=== PATIENT | male | born 1985 | race Caucasian/White ===

== ENCOUNTER 2019-11-14 13:21 | Emergency (ER) | payer OTHER, SELFPAY ==
[2019-11-14 13:26] VITALS: BP 127/60; PULSE 60; RESP 16; TEMP 36.5; O2SAT 100; BMI 48.3
--- NOTE | 2019-11-14 13:46 | ED.PSYCH ---
HPI - Psych General Chief Complaint: Psychiatric Symptoms <RANDY Sewell - Last Filed: 11/14/19 17:40> Stated Complaint: crisis <RANDY Sewell Last Filed: 11/14/19 17:40> Time Seen by Provider: 11/14/19 13:42 <RANDY Sewell Last Filed: 11/14/19 17:40> Source: patient <RANDY Sewell Last Filed: 11/14/19 17:40> Mode of arrival: ambulatory <RANDY Sewell Last Filed: 11/14/19 17:40> Limitations: no limitations <RANDY Sewell Last Filed: 11/14/19 17:40> History of Present Illness HPI Narrative: 34 y/o male with history of substance abuse (opiates, benzos, cocaine), depression, SI who was just discharged from here on 11/03 - discharged on Suboxone is presenting back with recurrent and persistent SI. He states he is not taking the Suboxone or any other medications. Last heroin use was a couple days ago and last ETOH was last week. He denies current symptoms of withdrawal. He is a vague historian. <RANDY Sewell - Last Filed: 11/14/19 17:40> MD complaint: suicidal ideation and feels depressed <RANDY Sewell - Last Filed: 11/14/19 17:40> Onset (ago): day(s) (3) <RANYD Sewell Last Filed: 11/14/19 17:40> Duration: constant <RANDY Sewell Last Filed: 11/14/19 17:40> History of same: Yes <RANYD Sewell Last Filed: 11/14/19 17:40> Relieving factors: none <RANDY Sewell Last Filed: 11/14/19 17:40> Exacerbating factors: alcohol and drug use <RANDY Sewell Last Filed: 11/14/19 17:40> Context: significant life stressor <RANDY Sewell Last Filed: 11/14/19 17:40> Associated psychiatric symptoms: depression and suicidal ideation <RANDY Sewell Last Filed: 11/14/19 17:40> Associated symptoms: denies other symptoms <RANDY Sewell - Last Filed: 11/14/19 17:40> Treatments prior to arrival: none <RANDY Sewell - Last Filed: 11/14/19 17:40> If self harm: admits thoughts of self harm <RANDY Sewell Last Filed: 11/14/19 17:40> Related Data Home Medications: Home Medications Medication Instructions Recorded Confirmed No Known Home Meds 11/14/19 11/14/19 <RANDY Sewell - Last Filed: 11/14/19 17:40> Allergies/Adverse Reactions: Allergies Allergy/AdvReac Type Severity Reaction Status Date / Time No Known Allergies Allergy Unverified 10/23/19 15:36 <RANDY Sewell - Last Filed: 11/14/19 17:40> Review of Systems Review of Systems: Constitutional: No Fever, No Chills ENT/Mouth: No sore throat, No Rhinorrhea, No Swallowing Difficulty Eyes: No Eye Pain, No Swelling, No Redness Cardiovascular: No Chest Pain, No SOB, No Orthopnea Respiratory: No Cough, No Sputum, No Wheezing Gastrointestinal: No Nausea, No Vomiting, No Diarrhea, No abdominal Pain, No Hematochezia, No Melena Genitourinary: No Dysuria, No Urinary Frequency, No Hematuria Musculoskeletal: No joint pain, No Myalgias Skin: No Skin Lesions, No rash Neuro: No Weakness, No Numbness, No Dizziness, No Headache Psych: + Anxiety/Panic, +Depression , +SI, No AH/VH Heme/Lymph: No Bruising, No Lymphadenopathy Endocrine: No Polyuria, No Polydipsia All other 10 point ROS are negative. <RANDY Sewell - Last Filed: 11/14/19 17:40> PMF Past Medical History Attestation statement: The following information was validated with the patient. <RANDY Sewell Last Filed: 11/14/19 17:40> Medical History: Medical History Anxiety Depression <RANDY Sewell Last Filed: 11/14/19 17:40> Social History Social History: Social History Alcohol intake: current Smoking Status: Current every day smoker Smoked in Last 30 Days: Yes Use of substances other than those prescribed or required for medical reasons: No Advance Directives: No Advance Directives Information Provided: No <RANDY Sewell - Last Filed: 11/14/19 17:40> Physical Exam Vital Signs and I&O and Narrative: Vital Signs and I&O: Vital Signs Temp 97.8 F 11/15/19 02:04 Pulse 45 L 11/15/19 02:04 Resp 16 11/15/19 04:00 BP 102/47 L 11/15/19 02:04 Pulse Ox 97 11/15/19 02:04 Intake & Output 11/14/19 11/14/19 11/15/19 06:59 18:59 06:59 Weight 140 kg Body Mass Index 48.3 Appearance: Alert. Oriented X3. No acute distress. Eyes: Pupils equal, round and reactive to light. ENT: Pharynx normal. Neck: Normal inspection. Neck supple. CVS: Normal heart rate and rhythm. Pulses normal. Respiratory: No respiratory distress. Breath sounds normal. Abdomen: Soft and nontender. +BS x4 Skin: Skin warm and dry. Normal skin color. Normal skin turgor. No rashes. Extremities: No lower extremity edema. Neuro: Oriented X 3. No motor deficit. No sensory deficit. Psych: flat affect, blunted, +SI. <RANDY Sewell - Last Filed: 11/14/19 17:40> Vital Signs and I&O: Vital Signs Temp 97.8 F 11/15/19 02:04 Pulse 45 L 11/15/19 02:04 Resp 16 11/15/19 04:00 BP 102/47 L 11/15/19 02:04 Pulse Ox 97 11/15/19 02:04 Intake & Output 11/14/19 11/14/19 11/15/19 06:59 18:59 06:59 Weight 140 kg Body Mass Index 48.3 <Dashawn Leiva DO - Last Filed: 11/15/19 06:02> Course Course Course Narrative: 34 y/o presenting with SI - several admissions for the same. Cannot state what caused his SI at this time, denies current plan. Will get basic labs, Utox and get [facility] consult. <RANDY Sewell - Last Filed: 11/14/19 17:40> patient was cleared by in. No suicidal or homicidal ideations. Patient wants to go to detox however will discharge and the right will be arranged for him to go to [facility] <Dashawn Leiva DO - Last Filed: 11/15/19 06:02> Reevaluation(s) Reevaluation #1: Patient's repeat vitals noted - HR 49 and BP 89/50. Patient re-evaluated at the bedside. He is currently sleeping. When he was awoken he states his HR and BP are always low. He feels fine. He is drinking water and offers no complaints. Repeat vitals and EKG pending. <RANDY Sewell - Last Filed: 11/14/19 17:40> Time: 17:31 <RANDY Sewell - Last Filed: 11/14/19 17:40> Reevaluation #2: Repeat BP 99/64. <RANDY Sewell - Last Filed: 11/14/19 17:40> Time: 17:40 <RANDY Sewell - Last Filed: 11/14/19 17:40> MDM - Psych Restraints Face to Face Assessment: Face to Face Assessment: Current Situation: After assessment of the patient, a review of the pertinent medical record and a discussion with nursing staff, I feel the patient requires a restrain intervention. Reaction To: [] Medical Condition: [] Behavioral State: [] Continued Need: [] <RANDY Sewell - Last Filed: 11/14/19 17:40> Lab Data Result diagrams: : 11/14/19 16:08 11/14/19 16:08 <RANDY Sewell - Last Filed: 11/14/19 17:40> Labs: Lab Results 11/14/19 11/14/19 11/14/19 Range/Units 16:08 16:08 16:08 WBC 5.6 (4.8-10.8) X10*3/uL RBC 4.91 (4.60-5.80) X10*6/uL Hgb 14.9 (14.0-18.0) g/dl Hct 43.6 (42-52) % MCV 88.8 (80-98) fL MCH 30.3 (27.0-33.0) pg MCHC 34.2 (31.0-36.0) g/dl RDW 12.9 (11.0-16.0) % Plt Count 220 (160-400) X10*3/uL MPV 10.1 (9.4-12.4) fL Immature Gran % (Auto) 0.4 (0.0-0.4) % Neut % (Auto) 55.0 (45-73) % Lymph % (Auto) 27.9 (20-40) % [place]rill % (Auto) 12.9 H (2-11) % Eos % (Auto) 3.1 (0-4) % Baso % (Auto) 0.7 (0-2) % Lymph # (Auto) 1.6 (1.2-4.9) X10*3/uL [place] # (Auto) 0.7 (0.1-1.2) X10*3/uL Eos # (Auto) 0.2 (0.0-0.4) X10*3/uL Baso # (Auto) 0.0 (0.0-0.2) X10*3/uL Abs Immat Gran (auto) 0.02 (0.00-0.03) X10*3/uL Absolute Neuts (auto) 3.1 (2.0-8.3) X10*3/uL Absolute Nucleated RBC 0.000 (0.0-0.012) X10*3/uL Nucleated RBC % (auto) 0.0 (0.0-0.2) /100WBC Sodium 137 (135-145) mmol/L Potassium 3.9 (3.3-5.1) mmol/l Chloride 100 (96-108) mmol/L Carbon Dioxide 29 (22-29) mmol/L Anion Gap 12 (12-20) BUN 17 H (9-16) mg/dL Creatinine 0.81 (0.5-1.4) mg/dL Estim Creat Clear Calc 170.5 Estimated GFR > 60 Random Glucose 93 (60-115) mg/dL Calcium 9.1 (8.4-10.2) mg/dL Total Bilirubin 0.6 (0.0-1.0) mg/dL AST 14 (5-37) U/L ALT 11 (0-40) U/L Alkaline Phosphatase 53 (39-117) U/L Total Protein 7.2 (6.5-8.0) g/dL Albumin 4.1 (3.5-5.0) g/dL Ethyl Alcohol < 10 mg/dL <RANDY Sewell - Last Filed: 11/14/19 17:40> Lab Results 11/14/19 11/14/19 11/14/19 Range/Units 16:08 16:08 16:08 WBC 5.6 (4.8-10.8) X10*3/uL RBC 4.91 (4.60-5.80) X10*6/uL Hgb 14.9 (14.0-18.0) g/dl Hct 43.6 (42-52) % MCV 88.8 (80-98) fL MCH 30.3 (27.0-33.0) pg MCHC 34.2 (31.0-36.0) g/dl RDW 12.9 (11.0-16.0) % Plt Count 220 (160-400) X10*3/uL MPV 10.1 (9.4-12.4) fL Immature Gran % (Auto) 0.4 (0.0-0.4) % Neut % (Auto) 55.0 (45-73) % Lymph % (Auto) 27.9 (20-40) % [place]rill % (Auto) 12.9 H (2-11) % Eos % (Auto) 3.1 (0-4) % Baso % (Auto) 0.7 (0-2) % Lymph # (Auto) 1.6 (1.2-4.9) X10*3/uL [place]rill # (Auto) 0.7 (0.1-1.2) X10*3/uL Eos # (Auto) 0.2 (0.0-0.4) X10*3/uL Baso # (Auto) 0.0 (0.0-0.2) X10*3/uL Abs Immat Gran (auto) 0.02 (0.00-0.03) X10*3/uL Absolute Neuts (auto) 3.1 (2.0-8.3) X10*3/uL Absolute Nucleated RBC 0.000 (0.0-0.012) X10*3/uL Nucleated RBC % (auto) 0.0 (0.0-0.2) /100WBC Sodium 137 (135-145) mmol/L Potassium 3.9 (3.3-5.1) mmol/l Chloride 100 (96-108) mmol/L Carbon Dioxide 29 (22-29) mmol/L Anion Gap 12 (12-20) BUN 17 H (9-16) mg/dL Creatinine 0.81 (0.5-1.4) mg/dL Estim Creat Clear Calc 170.5 Estimated GFR > 60 Random Glucose 93 (60-115) mg/dL Calcium 9.1 (8.4-10.2) mg/dL Total Bilirubin 0.6 (0.0-1.0) mg/dL AST 14 (5-37) U/L ALT 11 (0-40) U/L Alkaline Phosphatase 53 (39-117) U/L Total Protein 7.2 (6.5-8.0) g/dL Albumin 4.1 (3.5-5.0) g/dL Ethyl Alcohol < 10 mg/dL <Dashawn Leiva DO - Last Filed: 11/15/19 06:02> Discharge Plan Discharge Clinical Impression: Substance abuse Depression Qualifiers: Depression Type: major depressive disorder Major depression recurrence: recurrent Active/Remission status: currently active Major depression episode severity: severe Psychotic features: without psychotic features Qualified Code(s): F33.2 - Major depressive disorder, recurrent severe without psychotic features <RANDY Sewell - Last Filed: 11/14/19 17:40> Patient Disposition: Home, Self-Care <RANDY Sewell - Last Filed: 11/14/19 17:40> Instructions: Depression (ED) <RANDY Sewell - Last Filed: 11/14/19 17:40> Additional Instructions: Thank you for visiting the emergency department today. If your symptoms worsen or do not resolve completely please return to the emergency department immediately or call 911. if he have any questions please call your primary care physician <RANDY Sewell - Last Filed: 11/14/19 17:40> Prescriptions: No Action No Known Home Meds RF: 0 <RANDY Sewell - Last Filed: 11/14/19 17:40> Referrals: Behavioral Health Specialist [Provider Group] - 2 days <RANDY Sewell - Last Filed: 11/14/19 17:40>
[2019-11-14 13:59] VITALS: BP 91/50; PULSE 60; RESP 16; TEMP 35.6; O2SAT 98
--- NOTE | 2019-11-14 15:43 | PC.NURSE ---
this rn just received pt from main ed
[2019-11-14 16:18] LABS: MANUAL DIFF FLAG NO
[2019-11-14 16:26] LABS: Basophils Percent Auto 0.7 % (0-2); Eosinophils Absolute Auto 0.2 X10*3/uL (0.0-0.4); Eosinophils Percent Auto 3.1 % (0-4); Hematocrit 43.6 % (42-52); Hemoglobin 14.9 g/dl (14.0-18.0); Imm Gran Abs Auto 0.02 X10*3/uL (0.00-0.03); Imm Gran Pct Auto 0.4 % (0.0-0.4); Lymphocytes Absolute Auto 1.6 X10*3/uL (1.2-4.9); Lymphocytes Percent Auto 27.9 % (20-40); Mean Corpuscular HGB Conc 34.2 g/dl (31.0-36.0); Mean Corpuscular Hemoglobin 30.3 pg (27.0-33.0); Mean Corpuscular Volume 88.8 fL (80-98); Mean Platelet Volume 10.1 fL (9.4-12.4); Monocytes Absolute Auto 0.7 X10*3/uL (0.1-1.2); Monocytes Percent Auto 12.9 % (2-11); Neutrophils Absolute Auto 3.1 X10*3/uL (2.0-8.3); Platelet Count 220 X10*3/uL (160-400); Red Blood Count 4.91 X10*6/uL (4.60-5.80); Red Cell Distribution Width 12.9 % (11.0-16.0); White Blood Count 5.6 X10*3/uL (4.8-10.8)
[2019-11-14 16:46] LABS: Ethanol < 10 mg/dL
[2019-11-14 16:50] LABS: Alanine Aminotransferase 11 U/L (0-40); Albumin Level 4.1 g/dL (3.5-5.0); Alkaline Phosphatase 53 U/L (39-117); Anion Gap 12 (12-20); Aspartate Amino Transferase 14 U/L (5-37); Bilirubin Total 0.6 mg/dL (0.0-1.0); Blood Urea Nitrogen 17 mg/dL (9-16); Calcium 9.1 mg/dL (8.4-10.2); Carbon Dioxide 29 mmol/L (22-29); Chloride 100 mmol/L (96-108); Creatinine Clr Calc Pharmacy 170.5; Estimated Glomerular Filt Rate > 60; Glucose Random 93 mg/dL (60-115); Potassium 3.9 mmol/l (3.3-5.1); Sodium 137 mmol/L (135-145); Total Protein 7.2 g/dL (6.5-8.0)
[2019-11-14 17:19] VITALS: BP 89/50; PULSE 49; RESP 14; TEMP 36.1; O2SAT 96
--- NOTE | 2019-11-14 17:22 | ECG_ITS ---
Test Reason : LOW HR Blood Pressure : / mmHG Vent. Rate : 051 BPM Atrial Rate : 051 BPM P-R Int : 128 ms QRS Dur : 088 ms QT Int : 434 ms P-R-T Axes : 059 067 026 degrees QTc Int : 400 ms Sinus bradycardia Low voltage QRS Otherwise normal ECG When compared with ECG of 30-OCT-2019 07:47, No significant change was found Referred By: Mikala Castellon Electronically Signed By:PAZ NICHOLS MD
[2019-11-14 17:32] VITALS: BP 99/64
--- NOTE | 2019-11-14 20:34 | PC.NURSE ---
Patient is in milieu sleeping comfortably. No update from [facility] for ETA. Will continue to monitor.
--- NOTE | 2019-11-14 21:11 | PC.NURSE ---
[facility] called/spoke with Danya/confirmed receipt of referral, no eta at this time.
--- NOTE | 2019-11-14 23:15 | MHC.MBSS ---
Patient in bed appears sleeping. No distress observed/reported. Respiration +/=/non-labored bilaterally. Will continue to monitor.
[2019-11-15 02:04] VITALS: BP 102/47; PULSE 45; RESP 16; TEMP 36.6; O2SAT 97
--- NOTE | 2019-11-15 02:11 | PC.NURSE ---
JADENN completed assessment, patient disposition is go to detox at [facility] at 7,30 am. N will arrange the ride.
--- NOTE | 2019-11-15 03:09 | PC.NURSE ---
Patient in bed appears sleeping, no distress observed/reported, respiration +/=/non-labored bilaterally, will continue to monitor
[2019-11-15 04:00] VITALS: RESP 16
--- NOTE | 2019-11-15 04:24 | PC.NURSE ---
Patient in bed appears sleeping, no distress observed/reported, respiration +/=/non-labored bilaterally. Will continue to monitor.
--- NOTE | 2019-11-15 06:03 | PC.NURSE ---
Patient in bed appears sleeping, no distress observed/reported, respiration +/=/non-labored bilaterally. Will continue to monitor.
--- NOTE | 2019-11-15 07:15 | PC.NURSE ---
PT DECLINING [facility] Pt signed discharged paperwork. Pt reports he was just there waiting for a bed, and was told he could not get a bed because he was would be an EATS pt. Pt given a list of area detox facilities to contact. Pt cooperative. Denies Si or HI at this time.
--- NOTE | 2019-11-15 07:19 | PC.NURSE ---
pt awake, alert, resp unlabored.
== END 2019-11-15 07:19 | disposition home or self-care (01) ==
PROVIDERS: Physician Assistant; Emergency Provider Emergency Medicine
DX: F33.2 Major depressive disorder, recurrent severe without psychotic features (principal); R45.851 Suicidal ideations; F11.10 Opioid abuse, uncomplicated; F14.10 Cocaine abuse, uncomplicated; Z79.899 Other long term (current) drug therapy
CPT/HCPCS: 36415; 80053; 80320; 85025; 93005; 99285

== ENCOUNTER 2019-11-26 09:06 | Emergency (ER) | payer OTHER, SELFPAY ==
[2019-11-26 09:15] VITALS: BP 126/51; PULSE 68; RESP 18; TEMP 36.8; O2SAT 96
[2019-11-26 09:21] VITALS: BP 126/51; PULSE 68; RESP 18; TEMP 37.1; O2SAT 96; BMI 23.5
--- NOTE | 2019-11-26 09:22 | ED_ITS ---
HPI - Psych General Chief Complaint: Psychiatric Symptoms Stated Complaint: crisis Time Seen by Provider: 11/26/19 09:14 Source: patient Mode of arrival: ambulatory Limitations: no limitations History of Present Illness HPI Narrative: 34 yo with history of substance abuse (IV heroin/cocaine), depression presenting with SI with intent to overdose. He reports he tried to kill himself last night by injecting a large amount of cocaine. He states he was starting to have visual hallucinations. He admits to also using IV heroin but has not used that in a few days but has been using IV cocaine daily. Denies ETOH or other drugs. He states he is not on any psych meds at this time. He was recently admitted here to for similar presentation. Denies having a psychiatrist or therapist in the community. MD complaint: suicidal ideation, feels depressed, substance abuse and hallucina tions Onset (ago): day(s) Duration: constant History of same: Yes Relieving factors: none Exacerbating factors: drug use Context: recent drug abuse Associated psychiatric symptoms: depression and suicidal ideation Associated symptoms: insomnia Treatments prior to arrival: none If self harm: admits thoughts of self harm, has plan, has acted on plan and intentional overdose Details of plan: plans to overdose which he attempted last night by injecting large amounts of cocaine Related Data Home Medications Medication Instructions Recorded Confirmed No Known Home Meds 11/14/19 11/26/19 Allergies Allergy/AdvReac Type Severity Reaction Status Date / Time No Known Allergies Allergy Unverified 10/23/19 15:36 Review of Systems Review of Systems: Constitutional: No Fever, No Chills ENT/Mouth: No sore throat, No Rhinorrhea, No Swallowing Difficulty Eyes: No Eye Pain, No Swelling, No Redness Cardiovascular: No Chest Pain, No SOB, No Orthopnea, No Edema Respiratory: No Cough, No Sputum, No Wheezing, No dyspnea Gastrointestinal: No Nausea, No Vomiting, No Diarrhea, + abdominal Pain, No Hematochezia, No Melena Genitourinary: No Dysuria, No Urinary Frequency, No Hematuria Musculoskeletal: No joint pain, No Myalgias Skin: + Skin Lesions at injection sites, No rash Neuro: No Weakness, No Numbness, No Dizziness, + Headache Psych: + Anxiety/Panic, + Depression, +SI, +VH, no AH Heme/Lymph: No Bruising, No Lymphadenopathy Endocrine: No Polyuria, No Polydipsia [facility] Past Medical History Attestation statement: The following information was validated with the patient. Medical History Anxiety Depression Social History Social History Alcohol intake: current Alcohol intake frequency: holidays/special occasions only Alcohol type: beer Smoking Status: Current every day smoker Smoked in Last 30 Days: Yes Use of substances other than those prescribed or required for medical reasons: Yes Substance Use Type: Crack/Cocaine Substance Use Frequency: Daily Last Used Substance: Hours (ago) Any prior treatment program specific to substance use: No Advance Directives: No Advance Directives Information Provided: No Physical Exam Vital Signs: Vital Signs: Vital Signs Temp Pulse Resp BP Pulse Ox 11/26/19 10:00 18 11/26/19 09:21 98.8 F 68 18 126/51 L 96 11/26/19 09:15 98.3 F 68 18 126/51 L 96 Body Mass Index 23.5 Appearance: Alert. Oriented X3. No acute distress. Eyes: Pupils equal, round and reactive to light. ENT: Pharynx normal. Neck: Normal inspection. Neck supple. CVS: Normal heart rate and rhythm. Pulses normal. Respiratory: No respiratory distress. Breath sounds normal. Abdomen: Soft with mild RUQ tenderness, no rebound or guarding. Negative Cooper's sign. +BS x4 Skin: Skin warm and dry. Normal skin color. Normal skin turgor. No rashes. Extremities: No lower extremity edema. bilateral upper extremities with track lundberg from drug infection, no cellulites, abscess or streaking Psych: flat affect, normal speech, poor insight, admits to SI, no AH/VH, simple and vague responses Neuro: Oriented X 3. No motor deficit. No sensory deficit. Course Course Course Narrative: Patient seen by MELBA - fifi is a section 12 bed search at this time. Consultations Consultation #1: MELBA/alva MDM - Psych Restraints Face to Face Assessment: Face to Face Assessment: Current Situation: After assessment of the patient, a review of the pertinent medical record and a discussion with nursing staff, I feel the patient requires a restrain intervention. Reaction To: [] Medical Condition: [] Behavioral State: [] Continued Need: [] Lab Data Result diagrams: 11/26/19 09:47 11/26/19 09:47 Labs: Lab Results 11/26/19 11/26/19 11/26/19 Range/Units 09:47 09:47 09:47 WBC 8.8 (4.8-10.8) X10*3/uL RBC 4.48 L (4.60-5.80) X10*6/uL Hgb 13.3 L (14.0-18.0) g/dl Hct 39.6 L (42-52) % MCV 88.4 (80-98) fL MCH 29.7 (27.0-33.0) pg MCHC 33.6 (31.0-36.0) g/dl RDW 13.0 (11.0-16.0) % Plt Count 238 (160-400) X10*3/uL MPV 9.5 (9.4-12.4) fL Immature Gran % (Auto) 0.5 H (0.0-0.4) % Neut % (Auto) 80.0 H (45-73) % Lymph % (Auto) 11.3 L (20-40) % [place] % (Auto) 7.4 (2-11) % Eos % (Auto) 0.3 (0-4) % Baso % (Auto) 0.5 (0-2) % Lymph # (Auto) 1.0 L (1.2-4.9) X10*3/uL [place] # (Auto) 0.7 (0.1-1.2) X10*3/uL Eos # (Auto) 0.0 (0.0-0.4) X10*3/uL Baso # (Auto) 0.0 (0.0-0.2) X10*3/uL Abs Immat Gran (auto) 0.04 H (0.00-0.03) X10*3/uL Absolute Neuts (auto) 7.1 (2.0-8.3) X10*3/uL Absolute Nucleated RBC 0.000 (0.0-0.012) X10*3/uL Nucleated RBC % (auto) 0.0 (0.0-0.2) /100WBC Sodium 135 (135-145) mmol/L Potassium 4.2 (3.3-5.1) mmol/l Chloride 97 (96-108) mmol/L Carbon Dioxide 28 (22-29) mmol/L Anion Gap 14 (12-20) BUN 12 (9-16) mg/dL Creatinine 0.81 (0.5-1.4) mg/dL Estim Creat Clear Calc 117.8 Estimated GFR > 60 Random Glucose 97 (60-115) mg/dL Calcium 9.1 (8.4-10.2) mg/dL Total Bilirubin 0.8 (0.0-1.0) mg/dL AST 19 (5-37) U/L ALT 15 (0-40) U/L Alkaline Phosphatase 57 (39-117) U/L Total Protein 7.1 (6.5-8.0) g/dL Albumin 4.1 (3.5-5.0) g/dL Salicylates < 5.0 L (15-30) mg/dL Urine Opiates Screen POSITIVE H (Not Detect) Acetaminophen < 1 (<30) mcg/mL Ur Barbiturates Screen Not Detected (Not Detect) Ur Phencyclidine Scrn Not Detected (Not Detect) Ur Amphetamines Screen Not Detected (Not Detect) U Benzodiazepines Scrn Not Detected (Not Detect) Urine Cocaine Screen POSITIVE H (Not Detect) U Marijuana (THC) Screen Not Detected (Not Detect) Ethyl Alcohol mg/dL 11/26/19 Range/Units 09:47 WBC (4.8-10.8) X10*3/uL RBC (4.60-5.80) X10*6/uL Hgb (14.0-18.0) g/dl Hct (42-52) % MCV (80-98) fL MCH (27.0-33.0) pg MCHC (31.0-36.0) g/dl RDW (11.0-16.0) % Plt Count (160-400) X10*3/uL MPV (9.4-12.4) fL Immature Gran % (Auto) (0.0-0.4) % Neut % (Auto) (45-73) % Lymph % (Auto) (20-40) % [place] % (Auto) (2-11) % Eos % (Auto) (0-4) % Baso % (Auto) (0-2) % Lymph # (Auto) (1.2-4.9) X10*3/uL [place] # (Auto) (0.1-1.2) X10*3/uL Eos # (Auto) (0.0-0.4) X10*3/uL Baso # (Auto) (0.0-0.2) X10*3/uL Abs Immat Gran (auto) (0.00-0.03) X10*3/uL Absolute Neuts (auto) (2.0-8.3) X10*3/uL Absolute Nucleated RBC (0.0-0.012) X10*3/uL Nucleated RBC % (auto) (0.0-0.2) /100WBC Sodium (135-145) mmol/L Potassium (3.3-5.1) mmol/l Chloride (96-108) mmol/L Carbon Dioxide (22-29) mmol/L Anion Gap (12-20) BUN (9-16) mg/dL Creatinine (0.5-1.4) mg/dL Estim Creat Clear Calc Estimated GFR Random Glucose (60-115) mg/dL Calcium (8.4-10.2) mg/dL Total Bilirubin (0.0-1.0) mg/dL AST (5-37) U/L ALT (0-40) U/L Alkaline Phosphatase (39-117) U/L Total Protein (6.5-8.0) g/dL Albumin (3.5-5.0) g/dL Salicylates (15-30) mg/dL Urine Opiates Screen (Not Detect) Acetaminophen (<30) mcg/mL Ur Barbiturates Screen (Not Detect) Ur Phencyclidine Scrn (Not Detect) Ur Amphetamines Screen (Not Detect) U Benzodiazepines Scrn (Not Detect) Urine Cocaine Screen (Not Detect) U Marijuana (THC) Screen (Not Detect) Ethyl Alcohol < 10 mg/dL Discharge Plan Discharge Clinical Impression: Cocaine substance abuse, Heroin abuse Depression Qualifiers: Depression Type: major depressive disorder Major depression recurrence: recurrent Active/Remission status: currently active Major depression episode severity: severe Psychotic features: without psychotic features Qualified Code(s): F33.2 - Major depressive disorder, recurrent severe without psychotic features Prescriptions: No Action No Known Home Meds RF: 0
[2019-11-26 09:56] LABS: MANUAL DIFF FLAG NO
[2019-11-26 09:58] LABS: Basophils Percent Auto 0.5 % (0-2); Eosinophils Percent Auto 0.3 % (0-4); Hematocrit 39.6 % (42-52); Hemoglobin 13.3 g/dl (14.0-18.0); Imm Gran Abs Auto 0.04 X10*3/uL (0.00-0.03); Imm Gran Pct Auto 0.5 % (0.0-0.4); Lymphocytes Percent Auto 11.3 % (20-40); Mean Corpuscular HGB Conc 33.6 g/dl (31.0-36.0); Mean Corpuscular Hemoglobin 29.7 pg (27.0-33.0); Mean Corpuscular Volume 88.4 fL (80-98); Mean Platelet Volume 9.5 fL (9.4-12.4); Monocytes Absolute Auto 0.7 X10*3/uL (0.1-1.2); Monocytes Percent Auto 7.4 % (2-11); Neutrophils Absolute Auto 7.1 X10*3/uL (2.0-8.3); Platelet Count 238 X10*3/uL (160-400); Red Blood Count 4.48 X10*6/uL (4.60-5.80); White Blood Count 8.8 X10*3/uL (4.8-10.8)
[2019-11-26 10:00] VITALS: RESP 18
[2019-11-26 10:23] LABS: Ethanol < 10 mg/dL
[2019-11-26 10:27] LABS: Amphetamine Screen Urine Not Detected (Not Detect); Barbiturates, Urine Not Detected (Not Detect); Benzodiazepines Screen Urine Not Detected (Not Detect); Cannabinoid Screen Urine Not Detected (Not Detect); Cocaine Screen Urine POSITIVE (Not Detect); Opiate Screen Urine POSITIVE (Not Detect); Phencyclidine Screen Urine Not Detected (Not Detect)
[2019-11-26 10:31] LABS: Acetaminophen LAB < 1 mcg/mL (<30); Alanine Aminotransferase 15 U/L (0-40); Albumin Level 4.1 g/dL (3.5-5.0); Alkaline Phosphatase 57 U/L (39-117); Anion Gap 14 (12-20); Aspartate Amino Transferase 19 U/L (5-37); Bilirubin Total 0.8 mg/dL (0.0-1.0); Blood Urea Nitrogen 12 mg/dL (9-16); Calcium 9.1 mg/dL (8.4-10.2); Carbon Dioxide 28 mmol/L (22-29); Chloride 97 mmol/L (96-108); Creatinine Clr Calc Pharmacy 117.8; Estimated Glomerular Filt Rate > 60; Glucose Random 97 mg/dL (60-115); Potassium 4.2 mmol/l (3.3-5.1); Sodium 135 mmol/L (135-145); Total Protein 7.1 g/dL (6.5-8.0)
[2019-11-26 11:10] LABS: Salicylate < 5.0 mg/dL (15-30)
--- NOTE | 2019-11-26 11:31 | PC.NURSE ---
Attempted to fax to [facility] multiple times, fax unable to go through. Called [facility] spoke with Mady for patient referral. Per Mady pt is now on list to be seen.
--- NOTE | 2019-11-26 12:51 | PC.NURSE ---
[facility] at bedside for eval.
--- NOTE | 2019-11-26 15:22 | PC.NURSE ---
Pt resting in bed, calm, no complaints at this time. Continues to be a section 12 bed search.
[2019-11-26 17:29] VITALS: BP 110/63; PULSE 55; RESP 16; TEMP 36.7
--- NOTE | 2019-11-26 17:34 | PC.NURSE ---
Pt quietly resting in bed at this time. No complaints. Calm, appears at baseline. Continues to be a section 12 bed search
[2019-11-26 20:02] VITALS: PULSE 65
[2019-11-26] MEDS: hydrOXYzine HCL 50 MG TABLET PO (20:16)
--- NOTE | 2019-11-26 20:24 | PC.NURSE ---
Pt requesting suboxone, scoring a 2 on the COWS. Provider, Colleen, notified.
[2019-11-26 22:14] VITALS: BP 116/70; PULSE 53; RESP 18; TEMP 36.2; O2SAT 99
[2019-11-27] VITALS (8 sets, daily range): BP systolic 97–125; BP diastolic 54–77; PULSE 49–72; RESP 12–18; TEMP 36–36.8; O2SAT 96–98
[2019-11-27] MEDS: cloNIDine HCL 0.1 MG TABLET PO (00:23)
[2019-11-27] MEDS: traZODone HCL 50 MG TABLET PO (00:26)
[2019-11-27] MEDS: LORazepam 1 MG TABLET 2 MG PO (02:49)
--- NOTE | 2019-11-27 07:09 | PC.NURSE ---
Report recieved. Pt currently sleeping, respirations even and unlabored, in no apparent distress. Pt is inpatient bedsearch.
--- NOTE | 2019-11-27 09:25 | MHC.CARE ---
Addiction Consult Servce note: Patient presented to [facility] ED reporting recent heroin use and SI. Patient was evaluated by MELBA and is currently awaiting an inpatient psychiatric bed. Patient is reporting withdrawal symptoms and is requesting Suboxone. Discussed [facility] and [facility] with patient and provided patient with information on these resources. Discussed case with RN and ED provider and patient will be given Suboxone. Patient reports he is not interested in meeting with power and recovery supervisor this morning as he met with one last night.
[2019-11-27] MEDS: Buprenorphine/Naloxone 4/1 mg FILM 1 FILM SUBLINGUAL ×2 (09:35→15:12)
--- NOTE | 2019-11-27 19:13 | PC.NURSE ---
Report received. PT is sleeping in his room. Breathing is even and unlabored. Plan is to D/C [facility] at 2200 with [facility] per Care Team
== END 2019-11-27 21:27 | disposition home or self-care (01) ==
PROVIDERS: Physician Assistant; Emergency Provider Emergency Medicine
DX: F33.2 Major depressive disorder, recurrent severe without psychotic features (principal); F14.10 Cocaine abuse, uncomplicated; F11.10 Opioid abuse, uncomplicated; F17.200 Nicotine dependence, unspecified, uncomplicated
CPT/HCPCS: 36415; 80053; 80307; 80320; 85025; 99285; G0480; J0573

== ENCOUNTER 2021-01-06 12:30 | Outpatient (REF) | payer OTHER, SELFPAY ==
[2021-01-06 13:58] LABS: COVID-19 Test Negative (Negative)
== END 2021-01-06 12:31 | disposition home or self-care (01) ==
LOC: HO.LAB 12:30
PROVIDERS: Visit Provider Internal Medicine
DX: Z20.822 Contact with and (suspected) exposure to COVID-19 (principal)
CPT/HCPCS: 36415; 87635; C9803

== ENCOUNTER 2021-01-12 10:58 | Outpatient (REF) | payer OTHER, SELFPAY ==
[2021-01-12 15:31] LABS: COVID-19 Test Positive (Negative)
== END 2021-01-12 10:59 | disposition home or self-care (01) ==
LOC: HO.LAB 10:58
PROVIDERS: Visit Provider Internal Medicine
DX: Z20.822 Contact with and (suspected) exposure to COVID-19 (principal)
CPT/HCPCS: 36415; 87635; C9803

== ENCOUNTER 2021-01-18 08:48 | Outpatient (REF) | payer OTHER, SELFPAY ==
[2021-01-18 09:16] LABS: COVID-19 Test Negative (Negative); IDNOW Serial# 16C4AD1C
== END 2021-01-18 08:49 | disposition home or self-care (01) ==
LOC: HO.LAB 08:48
PROVIDERS: Visit Provider Internal Medicine
DX: Z20.822 Contact with and (suspected) exposure to COVID-19 (principal)
CPT/HCPCS: 36415; 87635; C9803

== ENCOUNTER 2021-01-19 09:17 | Outpatient (REF) | payer OTHER, SELFPAY ==
[2021-01-19 09:40] LABS: COVID-19 Test Negative (Negative); IDNOW Serial# 16C4AD1C
== END 2021-01-19 09:18 | disposition home or self-care (01) ==
LOC: HO.LAB 09:17
PROVIDERS: Visit Provider Internal Medicine
DX: Z20.822 Contact with and (suspected) exposure to COVID-19 (principal)
CPT/HCPCS: 36415; 87635; C9803

== ENCOUNTER 2022-09-09 18:24 | Emergency (ER) | payer OTHER, SELFPAY ==
[2022-09-09 18:32] VITALS: BP 142/96; PULSE 85; O2SAT 97
[2022-09-09 18:40] VITALS: BP 113/75; PULSE 95; RESP 15; TEMP 36.2; O2SAT 98; BMI 28.2
--- NOTE | 2022-09-09 19:17 | ED.OVERDOSE ---
HPI - Overdose General Chief Complaint: Overdose Stated Complaint: opioid od Time Seen by Provider: 09/09/22 18:48 Source: patient and EMS Mode of arrival: EMS Limitations: no limitations History of Present Illness HPI Narrative: 37 yo male with PMH of prior opiate abuse but in remission for several years sniffed one bag today found by bystanders and overdosed - 8mg by bystanders awake and oriented on EMS arrival MD complaint: accidental overdose Onset (ago): minute(s) (just prior to arrival ) Timing confirmed by: other (bystander) Intent: other (wanted to get high) How Overdose Was Discovered: other (bystander) Context: Accidental Overdose: wanted to get high Treatments Prior to Arrival: narcan (8mg) Related Data Home Medications Medication Instructions Recorded Confirmed clonidine HCl 0.1 mg tablet 0.1 mg PO BID PRN Anxiety 11/27/19 11/27/19 (Catapres) cyclobenzaprine 5 mg tablet 5 mg PO TID PRN Muscle Spasm 11/27/19 11/27/19 Allergies Allergy/AdvReac Type Severity Reaction Status Date / Time No Known Allergies Allergy Verified 11/27/19 01:39 Review of Systems Review of Systems: Constitutional : No Fever, No Chills, Cardiovascular : No Chest Pain, No SOB Respiratory : No Dyspnea Gastrointestinal : No abdominal pain Musculoskeletal : No Joint Swelling Skin : No rash, no skin laceration Neuro : No Weakness, No Numbness Psych : No SI/HI PMFSH Past Medical History Attestation statement: The following information was validated with the patient. Medical History Anxiety Depression Social History Social History Alcohol intake: former Smoked in Last 30 Days: Yes Use of substances other than those prescribed or required for medical reasons: Yes Substance Use Type: Heroin Advance Directives: No Advance Directives Information Provided: Yes Physical Exam Vital Signs: Vital Signs: Last Vital Signs Temp 97.2 F 09/09/22 18:40 Pulse 95 09/09/22 18:40 Resp 15 09/09/22 18:40 BP 113/75 09/09/22 18:40 Pulse Ox 98 09/09/22 18:40 O2 Del Method Room Air 09/09/22 18:40 BMI result Body Mass Index 28.2 Appearance: Alert. Oriented X3. No acute distress. Eyes: Pupils equal, round and reactive to light. ENT: Pharynx normal. Neck: Normal inspection. Neck supple. CVS: Normal heart rate and rhythm. Pulses normal. Respiratory: No respiratory distress. Breath sounds normal. Abdomen: Soft and nontender. Skin: Skin warm and dry. Normal skin color. Normal skin turgor. Extremities: No lower extremity edema. No calf ttp Neuro: Oriented X 3. No motor deficit. No sensory deficit. Course Course Course Narrative: awake alert no need for repeat narcan Medical Decision Making Medical Decision Making MDM Narrative: 37 yo male with relapse of sniffing heroin he overdosed responded to 8mg narcan denies SI, VS are stable declines are services will take narcan to go he wants to leave as soon as possible plan to watch 1.5 hours and call sober adult ride. Differential Diagnosis Differential Diagnoses: The differential diagnosis associated with the presentation includes accidental overdose, substance abuse Independent Historian Clinical information obtained from an independent historian. History obtained from or confirmed by: EMS External Record Review External record reviewed: Inpatient record Prescription Management I considered prescription management with: Other (narcan to go home with) Discharge Plan Discharge Clinical Impression: Drug overdose Patient Disposition: Home, Self-Care Instructions: Adult Overdose (ED) Additional Instructions: return for chest pain trouble breathing fevers cough confusion headaches or any other concerns carry narcan with you at all times Prescriptions: No Action clonidine HCl [Catapres] 0.1 mg tablet 0.1 mg PO BID MDD 0.2 mg PRN (Reason: Anxiety) cyclobenzaprine 5 mg tablet 5 mg PO TID MDD 15 mg PRN (Reason: Muscle Spasm)
[2022-09-09] MEDS: Naloxone HCl Nasal TAKE HOME 4 MG SPRAY 8 MG NOSTRILALT (20:02)
[2022-09-09 20:04] VITALS: BP 119/68; PULSE 99; RESP 15; O2SAT 98
== END 2022-09-09 20:07 | disposition home or self-care (01) ==
PROVIDERS: Emergency Provider Emergency Medicine
DX: T40.1X1A Poisoning by heroin, accidental (unintentional), initial encounter (principal); F11.10 Opioid abuse, uncomplicated; Y92.410 Unspecified street and highway as the place of occurrence of the external cause
CPT/HCPCS: 99284

== ENCOUNTER 2022-12-28 14:00 | Emergency (ER) | payer OTHER, SELFPAY ==
[2022-12-28 14:02] VITALS: BP 178/104; PULSE 110; RESP 18; TEMP 36.8; O2SAT 97; BMI 23.4
--- NOTE | 2022-12-28 14:05 | ED_ITS ---
HPI - General Adult General Chief complaint: General Medical Stated complaint: Tick bite- red and swollen area Time Seen by Provider: 12/28/22 14:07 Source: patient Mode of arrival: ambulatory Limitations: no limitations History of Present Illness HPI narrative: Patient is a 37-year-old male presenting to the emergency department complaint of tick bite to left lateral chest. States he noted the tick Sunday night or Sunday morning and removed at that time. States that his brother looked at the area yesterday and felt the head was still imbedded and so attempted to remove the head yesterday. Denies discharge or drainage from the area. Patient also complains of subjective fever and body aches. MD complaint: tick bite Onset (ago): day(s) Location: chest Associated symptoms: fever/chills (Subjective) and other (Myalgias) Treatments prior to arrival: none Related Data Home Medications Medication Instructions Recorded Confirmed clonidine HCl 0.1 mg tablet 0.1 mg PO BID PRN Anxiety 11/27/19 11/27/19 (Catapres) cyclobenzaprine 5 mg tablet 5 mg PO TID PRN Muscle Spasm 11/27/19 11/27/19 Previous Rx's Medication Instructions Recorded cephalexin 500 mg capsule 500 mg PO QID 7 days #28 caps 12/28/22 Allergies Allergy/AdvReac Type Severity Reaction Status Date / Time No Known Allergies Allergy Verified 12/28/22 14:06 Review of Systems Review of Systems: As per HPI. Yes all other systems are reviewed and are negative Constitutional: Constitutional: Reports as per HPI [facility] Past Medical History Medical History Anxiety Depression Social History Alcohol intake: former Substance Use Type: Heroin Advance Directives: No Advance Directives Information Provided: No Physical Exam ED Vital Signs: Vital Signs - 24 hr 12/28/22 14:02 Temperature 98.2 F Pulse Rate 110 H Respiratory Rate 18 Blood Pressure 178/104 H Pulse Oximetry 97 Oxygen Delivery Method Room Air BMI result Body Mass Index 23.4 Vital signs have been reviewed and appear to be correct. Blood pressure elevated. Heart rate mildly tachycardic. Respiratory rate normal. Temperature normal. Oxygen saturation normal. Const General: cooperative, healthy appearing and no acute distress Orientation/consciousness: oriented to person, oriented to place, oriented to time and patient oriented x3 Limitations: no limitations HENMT Head: Yes normocephalic and Yes atraumatic Ears: external ears normal General nose exam: Normal external nose present Face and sinus: Yes face symmetric Mouth: oropharynx normal and moist mucous membranes Throat: Yes uvula midline Eyes Pupils: Equal, round and reactive pupils present Neck Neck: Yes normal visual inspection and Yes supple Resp Effort & Inspection: normal respiratory effort and able to speak in complete sentences Auscultation: clear to auscultation bilaterally Cardio Rate: regular rate Rhythm: regular rhythm Heart sounds: S1 normal heart sound present and S2 normal heart sound present GI Palpation (GI): Soft to palpation and nontender Auscultation: normoactive bowel sounds General: Yes no CVA tenderness Back/Spine/Pelvis Back: no CVA tenderness Skin Other: [id number] rectangular area of erythema to left chest with central scab noted to left lateral chest, mild warmth, no drainage, no swelling or fluctuance General skin exam: elasticity normal and turgor normal Neuro General: oriented to person, oriented to place, oriented to time, patient oriented x3, moves all extremities, no focal motor deficits and CN's II-XI intact bilaterally Cranial nerves: Yes Equal, round and reactive pupils present Cognition (Neuro): normal cognition Extrem General: Yes full ROM, Yes no pedal edema and Yes no calf tenderness Psych Mental Status: mental status grossly normal Affect: normal affect Thought process: Normal thought process present Medications Administered Discontinued Medications Generic Name Dose Route Start Last Admin Trade Name Freq PRN Reason Stop Dose Admin Doxycycline Monohydrate 200 mg 12/28/22 14:10 12/28/22 14:25 Doxycycline Monohydrate 100 Mg Capsule PO 12/28/22 14:11 200 mg ONCE ONE Administration Medical Decision Making Medical Decision Making [facility] Narrative: Patient is a 37-year-old male presenting to the emergency department complaint of tick bite to left lateral chest. On exam patient is awake, A+Ox3, hypertensive, mildly tachycardic, VS otherwise WNL, afebrile, normal neurological exam without focal deficits, physical exam findings as above. Given reported symptoms and physical exam findings, initial differential includes tick bite, cellulitis. Rash is not consistent with erythema migrans. Will treat patient with prophylactic dose of doxycycline 200 mg p.o. once in the ED and discharged home on course of cephalexin for cellulitis. Return precautions discussed. Patient verbalized understanding of and agreement with plan. Differential Diagnosis Differential Diagnoses: The differential diagnosis associated with the presentation includes As per MDM. External Record Review External record reviewed: Inpatient record, Office record and Outpatient record Prescription Management I considered prescription management with: Antibiotic Discharge Plan Discharge Clinical Impression: Cellulitis, Tick bite of chest wall Patient Disposition: Home, Self-Care Instructions: Cellulitis (DC), Tick Bite (ED) Additional Instructions: You were treated with a one-time dose of doxycycline in the emergency department today for a tick bite. You are also being treated with a course of antibiotics for a skin infection also known as cellulitis. Please complete the full course of antibiotics as prescribed. Assess the area daily and return to the ED if you experience worsening redness, swelling, thick yellow drainage, fever, or any other concerning symptoms. Prescriptions: New cephalexin 500 mg capsule 500 mg PO QID 7 Days Qty: 28 0RF No Action clonidine HCl [Catapres] 0.1 mg tablet 0.1 mg PO BID MDD 0.2 mg PRN (Reason: Anxiety) cyclobenzaprine 5 mg tablet 5 mg PO TID MDD 15 mg PRN (Reason: Muscle Spasm)
[2022-12-28] MEDS: Doxycycline Monohydrate 100 MG CAPSULE 200 MG PO (14:25)
[2022-12-28 14:26] VITALS: BP 152/90; PULSE 90; RESP 20
[2022-12-28 14:38] LABS: IDNOW Serial# BCCEAD1C; Influenza A Negative (Negative)
[2022-12-28 14:39] LABS: COVID-19 Test Negative (Negative); IDNOW Serial# 08D9AD1C; Influenza B2 Negative (Negative)
== END 2022-12-28 14:34 | disposition home or self-care (01) ==
PROVIDERS: Registered Nurse Emergency; Emergency Provider Emergency Medicine
DX: L03.313 Cellulitis of chest wall (principal); S20.362A Insect bite (nonvenomous) of left front wall of thorax, initial encounter; W57.XXXA Bitten or stung by nonvenomous insect and other nonvenomous arthropods, initial encounter; R50.9 Fever, unspecified; R00.0 Tachycardia, unspecified; Z11.52 Encounter for screening for COVID-19; Y93.9 Activity, unspecified; Y92.9 Unspecified place or not applicable; Y99.9 Unspecified external cause status
CPT/HCPCS: 87502; 87635; 99283

== ENCOUNTER 2023-01-02 22:58 | Emergency (ER) | payer OTHER, SELFPAY ==
[2023-01-02 23:03] VITALS: BP 142/55; PULSE 70; RESP 18; TEMP 36.9; O2SAT 96; BMI 22.8
[2023-01-02 23:26] LABS: Basophils Percent Auto 0.6 % (0-2); Eosinophils Absolute Auto 0.1 X10*3/uL (0.0-0.4); Eosinophils Percent Auto 1.7 % (0-4); Hematocrit 40.2 % (42.0-52.0); Hemoglobin 13.5 g/dl (14.0-18.0); Imm Gran Abs Auto 0.03 X10*3/uL (0.00-0.03); Imm Gran Pct Auto 0.5 % (0.0-0.4); Lymphocytes Absolute Auto 1.6 X10*3/uL (1.2-4.9); Lymphocytes Percent Auto 25.2 % (20-40); MANUAL DIFF FLAG NO; Mean Corpuscular HGB Conc 33.6 g/dl (31.0-36.0); Mean Corpuscular Hemoglobin 29.5 pg (27.0-33.0); Mean Corpuscular Volume 87.8 fL (80.0-98.0); Monocytes Percent Auto 14.6 % (2-11); Neutrophils Absolute Auto 3.8 x10*3/uL (2.0-8.3); Neutrophils Percent Auto 57.4 % (45-73); Platelet Count 231 X10*3/uL (160-400); Red Blood Count 4.58 X10*6/uL (4.60-5.80); Red Cell Distribution Width 13.9 % (11.0-16.0); White Blood Count 6.5 X10*3/uL (4.8-10.8)
[2023-01-02 23:41] LABS: Alanine Aminotransferase 20 U/L (0-40); Albumin Level 3.6 g/dL (3.5-5.0); Alkaline Phosphatase 55 U/L (39-117); Anion Gap 17 (12-20); Aspartate Amino Transferase 30 U/L (5-37); Bilirubin Total 0.6 mg/dL (0.0-1.0); Blood Urea Nitrogen 18 mg/dL (9-16); Calcium 9.5 mg/dL (8.4-10.2); Carbon Dioxide 23 mmol/L (22-29); Chloride 100 mmol/L (96-108); Creatinine Clr Calc Pharmacy 107.2; Estimated Glomerular Filt Rate > 60; Ethanol < 10 mg/dL; Glucose Random 115 mg/dL (60-115); Potassium 4.7 mmol/L (3.3-5.1); Sodium 135 mmol/L (135-145); Total Protein 7.6 g/dL (6.5-8.0)
[2023-01-02 23:49] LABS: Appearance Urine Cloudy; Color Urine Dark Yellow; Glucose Urine UA Negative (Negative); Leukocyte Esterase Urine Negative (Negative); Nitrite Urine Negative (Negative); PH 5.5 (5.0-9.0); Urine Blood Negative (Negative); Urine Ketones 15 mg/dL (Negative); Urine Protein Trace mg/dL (Neg-Trace)
[2023-01-02 23:55] LABS: Amphetamine Screen Urine Not Detected (Not Detect); Barbiturates, Urine Not Detected (Not Detect); Benzodiazepines Screen Urine Not Detected (Not Detect); Cannabinoid Screen Urine Not Detected (Not Detect); Cocaine Screen Urine POSITIVE (Not Detect); Fentanyl, urine POSITIVE (Not Detect); Opiate Screen Urine POSITIVE (Not Detect); Phencyclidine Screen Urine Not Detected (Not Detect)
[2023-01-03 00:17] LABS: COVID-19 Test Negative (Negative); IDNOW Serial# 08D9AD1C
--- NOTE | 2023-01-03 00:25 | ED_ITS ---
HPI - Psych General Chief Complaint: Psychiatric Symptoms Stated Complaint: Crisis Time Seen by Provider: 01/02/23 23:32 Source: patient Mode of arrival: ambulatory Limitations: no limitations History of Present Illness HPI Narrative: Patient is a 37-year-old male who presents emergency department endorsing suicidal ideations without any specific plan, homicidal ideations without any specific plan nor towards any specific person. He reports increased stressors over the past 2 weeks. He is currently being followed at [facility] in [place] for methadone, states he is using heroin and cocaine intravenously and he is interested in detox from this. He denies alcohol usage. He denies any physical complaints at this time. He denies having any outpatient psychiatric care. Related Data Home Medications Medication Instructions Recorded Confirmed clonidine HCl 0.1 mg tablet 0.1 mg PO BID PRN Anxiety 11/27/19 11/27/19 (Catapres) cyclobenzaprine 5 mg tablet 5 mg PO TID PRN Muscle Spasm 11/27/19 11/27/19 Previous Rx's Medication Instructions Recorded cephalexin 500 mg capsule 500 mg PO QID 7 days #28 caps 12/28/22 Allergies Allergy/AdvReac Type Severity Reaction Status Date / Time No Known Allergies Allergy Verified 12/28/22 14:06 Review of Systems 2 Review of Systems: Yes all other systems are reviewed and are negative PMFSH Past Medical History Attestation statement: The following information was validated with the patient. Source: old records reviewed Medical History Anxiety Depression Social History Social History Alcohol intake: former Substance Use Type: Heroin Advance Directives: No Advance Directives Information Provided: No Physical Exam 2 Vital Signs: Vital Signs: Last Vital Signs Temp 98.4 F 01/02/23 23:03 Pulse 70 01/02/23 23:03 Resp 18 01/02/23 23:03 BP 142/55 H 01/02/23 23:03 Pulse Ox 96 01/02/23 23:03 O2 Del Method Room Air 01/02/23 23:03 BMI result Body Mass Index 22.8 Appearance: Alert.?Oriented to person, place and time. No acute distress.?Normal affect. Eyes: Pupils equal, round and reactive to light.? ENT: Pharynx normal.?? Neck: Normal inspection.? Neck supple.?? CVS: Heart sounds normal. Normal heart rate and rhythm.? Pulses normal.?? Respiratory: No respiratory distress.? Lung sounds clear to auscultation bilaterally?? Abdomen: Soft and non-tender. Normoactive bowel sounds. Skin: Skin warm and dry.? Normal skin color.? Extremities: No lower extremity edema. Neuro: Moves all extremities spontaneously. Sensation intact bilaterally. CN II- XII intact. No focal neuro deficits. Ambulates with normal steady gait. Medical Decision Making Medical Decision Making [facility] Narrative: Patient is a 37-year-old male with past medical history of substance use disorder presenting to emergency department with vague suicidal and homicidal ideations as per HPI. At the time my examination he is calm and cooperative. He is currently on methadone, but using intravenous heroin and cocaine, requesting assistance with detox as well. Increased stressors recently which she does not wish to elaborate on. When asked he denies any physical complaints and his physical examination is benign. Plan to obtain basic labs for medical clearance, and refer to CARE team for further evaluation and determination as to whether inpatient psychiatric services are required at this time. Patient agreeable to plan of care. Differential Diagnosis Differential Diagnoses: The differential diagnosis associated with the presentation includes (Suicidal ideations, homicidal ideations, polysubstance use disorder) Admission/Observation Consideration of admission/observation: Escalation of care including admission/observation considered (01:30 placed in position observation so that care team evaluation can ensue. No distress. Speaking clear full sentences.) Consult Healthcare Provider Management of the patient was discussed with: Behavioral Health Provider (As noted above) Lab Data [facility] Lab Attestation statement: I reviewed the patient's lab results. CBC is without leukocytosis, miles anemia with no active bleeding, overall unremarkable BMP. Urinalysis without signs of infection. Toxicology positive for opiates, fentanyl, cocaine. 01/02/23 23:16 01/02/23 23:16 Labs: Lab Results 01/02/23 01/02/23 Range/Units 23:16 23:39 WBC 6.5 (4.8-10.8) X10*3/uL RBC 4.58 L (4.60-5.80) X10*6/uL Hgb 13.5 L (14.0-18.0) g/dl Hct 40.2 L (42.0-52.0) % MCV 87.8 (80.0-98.0) fL MCH 29.5 (27.0-33.0) pg MCHC 33.6 (31.0-36.0) g/dl RDW 13.9 (11.0-16.0) % Plt Count 231 (160-400) X10*3/uL MPV 10.0 (9.4-12.4) fL Immature Gran % (Auto) 0.5 H (0.0-0.4) % Neut % (Auto) 57.4 (45-73) % Lymph % (Auto) 25.2 (20-40) % [place] % (Auto) 14.6 H (2-11) % Eos % (Auto) 1.7 (0-4) % Baso % (Auto) 0.6 (0-2) % Lymph # (Auto) 1.6 (1.2-4.9) X10*3/uL [place] # (Auto) 1.0 (0.1-1.2) X10*3/uL Eos # (Auto) 0.1 (0.0-0.4) X10*3/uL Baso # (Auto) 0.0 (0.0-0.2) X10*3/uL Abs Immat Gran (auto) 0.03 (0.00-0.03) X10*3/uL Absolute Neuts (auto) 3.8 (2.0-8.3) x10*3/uL Absolute Nucleated RBC 0.000 (0.0-0.012) X10*3/uL Nucleated RBC % (auto) 0.0 (0.0-0.2) /100WBC Sodium 135 (135-145) mmol/L Potassium 4.7 (3.3-5.1) mmol/L Chloride 100 (96-108) mmol/L Carbon Dioxide 23 (22-29) mmol/L Anion Gap 17 (12-20) BUN 18 H (9-16) mg/dL Creatinine 0.89 (0.5-1.4) mg/dL Estim Creat Clear Calc 107.2 Estimated GFR > 60 Random Glucose 115 (60-115) mg/dL Calcium 9.5 (8.4-10.2) mg/dL Total Bilirubin 0.6 (0.0-1.0) mg/dL AST 30 (5-37) U/L ALT 20 (0-40) U/L Alkaline Phosphatase 55 (39-117) U/L Total Protein 7.6 (6.5-8.0) g/dL Albumin 3.6 (3.5-5.0) g/dL Urine Color Dark Yellow Urine Appearance Cloudy Urine pH 5.5 (5.0-9.0) Ur Specific [place] 1.020 (1.005-1.025) Urine Protein Trace (Neg-Trace) mg/dL Urine Glucose (UA) Negative (Negative) mg/dL Urine Ketones 15 (Negative) mg/dL Urine Blood Negative (Negative) Urine Nitrite Negative (Negative) Ur Leukocyte Esterase Negative (Negative) Urine Opiates Screen POSITIVE H (Not Detect) Urine Fentanyl Screen POSITIVE H (Not Detect) Ur Barbiturates Screen Not Detected (Not Detect) Ur Phencyclidine Scrn Not Detected (Not Detect) Ur Amphetamines Screen Not Detected (Not Detect) U Benzodiazepines Scrn Not Detected (Not Detect) Urine Cocaine Screen POSITIVE H (Not Detect) U Marijuana (THC) Screen Not Detected (Not Detect) Ethyl Alcohol < 10 mg/dL COVID-19 ([facility]NA[facility]) Negative (Negative) COVID-19 Clin Com See Note Social Determinants Patient?s care significantly limited by Social Determinants of Health including: Alcoholism and drug addiction in family Discharge Plan Discharge Clinical Impression: Suicidal ideation, Homicidal ideation, Substance use disorder Patient Disposition: Still a Patient Prescriptions: No Action clonidine HCl [Catapres] 0.1 mg tablet 0.1 mg PO BID MDD 0.2 mg PRN (Reason: Anxiety) cyclobenzaprine 5 mg tablet 5 mg PO TID MDD 15 mg PRN (Reason: Muscle Spasm) cephalexin 500 mg capsule 500 mg PO QID 7 Days Qty: 28 0RF
--- NOTE | 2023-01-03 06:17 | PC.NURSE ---
patient appears to have remained asleep for the majority of the evening appears in no distress, awaits assessent
--- NOTE | 2023-01-03 08:35 | HE.PHANOTE ---
METHADONE DOSE CONFIRMATION PATIENT HAS TAKE HOME BOTTLES OF 65MG. [facility]
[2023-01-03] MEDS: methADONE HCl 20 MG/2 ML ORAL.CONC 65 MG PO (09:17)
[2023-01-03 10:48] VITALS: RESP 16
--- NOTE | 2023-01-03 10:59 | PC.NURSE ---
patient is alert and oriented and able to make needs known. Patient is able to independently ambulate around unit. Patient has a good appetite and ate 100% of breakfast. methadone confirmed with [facility] clinic. patient advocating for discharge. No SI/HI. Patient discharged with belongings.
--- NOTE | 2023-01-03 11:12 | MHC.RECOVSUP ---
Met with pt in [facility] who is here for psychiatric and ROBERT. Pt informs he has been using about $100 of heroin and $100 of cocaine intravenously every day and has not been to [facility] since [place] 3 years ago. At this time pt states he would like to section 35 himself tomorrow morning and does not want to do it today as he doesn't feel well about it and just needs to wait until tomorrow. T/W informed pt how to section himself and if he has any issues or uses again to come back and we can help him get there. Pt reports understanding and has no other questions or concerns at this time.
== END 2023-01-03 11:00 | disposition home or self-care (01) ==
PROVIDERS: Emergency Provider Emergency Medicine
DX: R45.851 Suicidal ideations (principal); R45.850 Homicidal ideations; F19.99 Other psychoactive substance use, unspecified with unspecified psychoactive substance-induced disorder; Z11.52 Encounter for screening for COVID-19; F11.20 Opioid dependence, uncomplicated; F41.9 Anxiety disorder, unspecified; F32.A Depression, unspecified; Z79.899 Other long term (current) drug therapy
CPT/HCPCS: 80053; 80307; 81003; 85025; 87635; 99284; S9485

== ENCOUNTER 2023-09-11 08:49 | Emergency (ER) | payer OTHER, SELFPAY ==
--- NOTE | 2023-09-11 09:23 | PC.NURSE ---
1st call by name with no answer at 09:23am.
--- NOTE | 2023-09-11 10:01 | PC.NURSE ---
No call to name on second attempt at 10:01am. Assumed that pt left department.
== END 2023-09-11 13:31 | disposition left against medical advice (07) ==
PROVIDERS: Emergency Provider Emergency Medicine
DX: M79.89 Other specified soft tissue disorders (principal); Z53.21 Procedure and treatment not carried out due to patient leaving prior to being seen by health care provider

== ENCOUNTER 2023-09-12 00:42 | Emergency (ER) | payer OTHER, SELFPAY ==
[2023-09-12 00:50] VITALS: BP 141/58; PULSE 74; RESP 17; TEMP 37.7; O2SAT 97; BMI 23.6
[2023-09-12 02:21] LABS: Basophils Percent Auto 0.1 % (0-2); Hematocrit 37.9 % (42.0-52.0); Hemoglobin 13.6 g/dl (14.0-18.0); Imm Gran Abs Auto 0.07 X10*3/uL (0.00-0.03); Imm Gran Pct Auto 0.4 % (0.0-0.4); Lymphocytes Absolute Auto 0.8 X10*3/uL (1.2-4.9); Lymphocytes Percent Auto 4.3 % (20-40); MANUAL DIFF FLAG SCAN; Mean Corpuscular HGB Conc 35.9 g/dl (31.0-36.0); Mean Corpuscular Hemoglobin 30.6 pg (27.0-33.0); Mean Corpuscular Volume 85.2 fL (80.0-98.0); Mean Platelet Volume 10.6 fL (9.4-12.4); Monocytes Absolute Auto 1.8 X10*3/uL (0.1-1.2); Monocytes Percent Auto 10.1 % (2-11); Neutrophils Absolute Auto 14.8 x10*3/uL (2.0-8.3); Neutrophils Percent Auto 85.1 % (45-73); Platelet Count 176 X10*3/uL (160-400); Red Blood Count 4.45 X10*6/uL (4.60-5.80); Red Cell Distribution Width 12.7 % (11.0-16.0); SCAN SMEAR FLAG 1; White Blood Count 17.4 X10*3/uL (4.8-10.8)
[2023-09-12] MEDS: Amoxicillin/Potassium Clav 875 MG TABLET PO (02:28)
[2023-09-12 02:32] LABS: Lactic Acid 1.5 mmol/L (0.5-2.0)
[2023-09-12 02:33] VITALS: BP 122/73; PULSE 77; RESP 18; TEMP 37.4; O2SAT 99
[2023-09-12 02:40] LABS: Alanine Aminotransferase 23 U/L (0-40); Albumin Level 3.9 g/dL (3.5-5.0); Alkaline Phosphatase 60 U/L (39-117); Anion Gap 19 (12-20); Aspartate Amino Transferase 36 U/L (5-37); Bilirubin Total 0.9 mg/dL (0.0-1.0); Blood Urea Nitrogen 15 mg/dL (9-16); Calcium 9.6 mg/dL (8.4-10.2); Carbon Dioxide 22 mmol/L (22-29); Chloride 99 mmol/L (96-108); Creatinine Clr Calc Pharmacy 100.8; Estimated Glomerular Filt Rate > 60; Glucose Random 85 mg/dL (60-115); Potassium 3.9 mmol/L (3.3-5.1); Sodium 136 mmol/L (135-145); Total Protein 7.1 g/dL (6.5-8.0)
[2023-09-12 02:44] LABS: SLIDE REVIEW VERIFIED
--- NOTE | 2023-09-12 03:26 | ED.GENADULT ---
HPI - General Adult General Chief complaint: Skin/Abscess/Foreign Body Stated complaint: general medical Time Seen by Provider: 09/12/23 01:31 Source: patient Mode of arrival: ambulatory Limitations: no limitations History of Present Illness ED Provider: Dr. Mendoza HPI narrative: Patient states he was shooting up heroine and cocaine and noticed swelling and redness to his arms after shooting up. States he feels chills Onset (ago): hour(s) Related Data Home Medications ?Medication ?Instructions ?Recorded ?Confirmed methadone 65 mg PO DAILY 01/03/23 01/03/23 Previous Rx's ?Medication ?Instructions ?Recorded amoxicillin 875 mg-potassium 1 tab PO BID #20 tabs 09/12/23 clavulanate 125 mg tablet doxycycline hyclate 100 mg capsule 100 mg PO BID #20 caps 09/12/23 Allergies Allergy/AdvReac Type Severity Reaction Status Date / Time No Known Allergies Allergy Verified 09/12/23 00:54 Review of Systems Neurologic: Denies Sensory deficit (Neuro) [facility] Past Medical History Medical History Anxiety Depression Social History Social History Alcohol intake: former Substance Use Type: Heroin Advance Directives: No Advance Directives Information Provided: Yes Do you have a plan to hurt others: No Plan Physical Exam ED Vital Signs: Vital Signs - 24 hr 09/12/23 00:50 09/12/23 02:33 Temperature 99.8 F 99.3 F Pulse Rate 74 77 Respiratory Rate 17 18 Blood Pressure 141/58 H 122/73 Pulse Oximetry 97 99 Oxygen Delivery Method Room Air Room Air BMI result Body Mass Index 23.6 Const Other: thin unkept male complaining of pain to both arm Orientation/consciousness: oriented to person and patient oriented x3 Limitations: no limitations HENMT Head: Yes normal to inspection Ears: external ears normal General nose exam: Normal external nose present Mouth: Normal oral and palatal mucosa present and oropharynx normal Throat: Yes posterior oropharynx normal Eyes General: appearance normal, both eyes and all related structures Neck Neck: Yes normal visual inspection Chest Chest palpation & inspection: normal inspection of the chest Resp Auscultation: clear to auscultation bilaterally Cardio Jugular venous distension: no JVD Rate: regular rate Rhythm: regular rhythm Heart sounds: S1 normal heart sound present and S2 normal heart sound present GI Inspection: Yes normal to inspection Palpation (GI): Soft to palpation, nontender and No hepatosplenomegaly present Auscultation: normal bowel sounds General: Yes no CVA tenderness Back/Spine/Pelvis Back: no CVA tenderness Skin Other: there is slight redness to the left arm only with warmth Neuro General: oriented to person and patient oriented x3 Cranial nerves: Yes CN's II-XII intact bilaterally Motor exam (neuro): 5/5 motor strength present throughout Sensory Exam: No Sensory deficit (Neuro) Extrem General: Yes normal to inspection Psych Appearance: grossly normal Course Reevaluation(s) Reevaluation #1: No progression of the erythema, there is an elevation of the WBC to 17.[address] the patient on doxy and augmentin for 10 days Time: 05:17 Medications Administered Discontinued Medications Generic Name Dose Route Start Last Admin Trade Name Freq PRN Reason Stop Dose Admin Amoxicillin/Clavulanate Potassium 875 mg 09/12/23 01:41 09/12/23 02:28 Amoxicillin/Potassium Clav 875 Mg Tablet PO 09/12/23 01:42 875 mg ONCE ONE Administration Medical Decision Making Differential Diagnosis Differential Diagnoses: The differential diagnosis associated with the presentation includes (bacteremia, cellulitis, opiate use, ivdu) Admission/Observation Consideration of admission/observation: Escalation of care including admission/observation considered (upon arrival patient was considered for admission) Lab Data 09/12/23 02:10 09/12/23 02:10 Labs: Lab Results 09/12/23 Range/Units 02:10 WBC 17.4 H (4.8-10.8) X10*3/uL RBC 4.45 L (4.60-5.80) X10*6/uL Hgb 13.6 L (14.0-18.0) g/dl Hct 37.9 L (42.0-52.0) % MCV 85.2 (80.0-98.0) fL MCH 30.6 (27.0-33.0) pg MCHC 35.9 (31.0-36.0) g/dl RDW 12.7 (11.0-16.0) % Plt Count 176 (160-400) X10*3/uL MPV 10.6 (9.4-12.4) fL Immature Gran % (Auto) 0.4 (0.0-0.4) % Neut % (Auto) 85.1 H (45-73) % Lymph % (Auto) 4.3 L (20-40) % [place] % (Auto) 10.1 (2-11) % Eos % (Auto) 0.0 (0-4) % Baso % (Auto) 0.1 (0-2) % Lymph # (Auto) 0.8 L (1.2-4.9) X10*3/uL [place] # (Auto) 1.8 H (0.1-1.2) X10*3/uL Eos # (Auto) 0.0 (0.0-0.4) X10*3/uL Baso # (Auto) 0.0 (0.0-0.2) X10*3/uL Abs Immat Gran (auto) 0.07 H (0.00-0.03) X10*3/uL Absolute Neuts (auto) 14.8 H (2.0-8.3) x10*3/uL Absolute Nucleated RBC 0.000 (0.0-0.012) X10*3/uL Nucleated RBC % (auto) 0.0 (0.0-0.2) /100WBC Smear Tech's Comments VERIFIED Sodium 136 (135-145) mmol/L Potassium 3.9 (3.3-5.1) mmol/L Chloride 99 (96-108) mmol/L Carbon Dioxide 22 (22-29) mmol/L Anion Gap 19 (12-20) BUN 15 (9-16) mg/dL Creatinine 0.91 (0.5-1.4) mg/dL Estim Creat Clear Calc 100.8 Estimated GFR > 60 Random Glucose 85 (60-115) mg/dL Lactic Acid 1.5 (0.5-2.0) mmol/L Calcium 9.6 (8.4-10.2) mg/dL Total Bilirubin 0.9 (0.0-1.0) mg/dL AST 36 (5-37) U/L ALT 23 (0-40) U/L Alkaline Phosphatase 60 (39-117) U/L Total Protein 7.1 (6.5-8.0) g/dL Albumin 3.9 (3.5-5.0) g/dL External Record Review External record reviewed: Outpatient record Tests considered The following testing was considered but not selected: US of arm considered but patient just shot up recently making dvt much less likely Chronic Conditions Patient?s care impacted by: Other (IVDU) Social Determinants Patient?s care significantly limited by Social Determinants of Health including: Alcoholism and drug addiction in family Discharge Plan Discharge Clinical Impression: Cellulitis Patient Disposition: Home, Self-Care Instructions: Cellulitis (ED) Prescriptions: New amoxicillin-pot clavulanate 875-125 mg tablet 1 tab PO BID Qty: 20 0RF doxycycline hyclate 100 mg capsule 100 mg PO BID Qty: 20 0RF No Action methadone 65 mg PO DAILY Rx Instructions: BHN confirmed patient received 6 take home bottles- 65mg each on 12/27/2022 to use for dosing through 01/02/2023. Referrals: Physician,Unknown J [Primary Care Provider] - 3 days Print Language: [place] Citizen
[2023-09-12] MEDS: Doxycycline Monohydrate 100 MG CAPSULE PO (06:04)
[2023-09-12 06:09] VITALS: BP 121/66; PULSE 87; RESP 16; TEMP 37.1; O2SAT 98
[2023-09-12 06:11] VITALS: BP 121/66; PULSE 87; RESP 16; TEMP 37.1; O2SAT 98
== END 2023-09-12 06:13 | disposition home or self-care (01) ==
PROVIDERS: Emergency Provider Emergency Medicine
DX: L03.113 Cellulitis of right upper limb (principal); L03.114 Cellulitis of left upper limb; F11.10 Opioid abuse, uncomplicated; F14.10 Cocaine abuse, uncomplicated; Z79.899 Other long term (current) drug therapy
CPT/HCPCS: 36415; 80053; 83605; 85025; 87040; 99283; 99284

== ENCOUNTER 2023-09-13 10:01 | Emergency (ER) | payer OTHER, SELFPAY ==
--- NOTE | 2023-09-13 10:13 | ED.PSYCH ---
HPI - Psych General Chief Complaint: Skin/Abscess/Foreign Body Stated Complaint: crisis Time Seen by Provider: 09/13/23 10:12 Source: patient Mode of arrival: ambulatory Limitations: no limitations History of Present Illness HPI Narrative: 38-year-old male past medical history of cocaine and heroin use is supposed to be on methadone as well on Augmentin and doxycycline as of yesterday after being seen for cellulitis who presents emergency department for depression and detox. He denies SI at this time Related Data Home Medications ?Medication ?Instructions ?Recorded ?Confirmed methadone 65 mg PO DAILY 01/03/23 01/03/23 Previous Rx's ?Medication ?Instructions ?Recorded amoxicillin 875 mg-potassium 1 tab PO BID #20 tabs 09/12/23 clavulanate 125 mg tablet doxycycline hyclate 100 mg capsule 100 mg PO BID #20 caps 09/12/23 Allergies Allergy/AdvReac Type Severity Reaction Status Date / Time No Known Allergies Allergy Verified 09/13/23 10:12 Review of Systems Review of Systems: Review of systems: General: Patient denies any fever chills recent illness or falls Musculoskeletal: Denies back pain or body aches or other injuries HEENT: denies headache, runny nose, ear pain Respiratory: denies shortness of breath, cough Cardiovascular: no chest pain or palpitations : denies dysuria, frequency Abdomen: no nausea vomiting denies abdominal pain Extremities: no swelling, no pain Skin: no diaphoresis Yes all other systems are reviewed and are negative PMFSH Past Medical History Medical History Anxiety Depression Social History Social History Alcohol intake: former Substance Use Type: Crack/Cocaine Advance Directives: No Advance Directives Information Provided: No Do you have a plan to hurt others: No Plan Physical Exam Vital Signs: Vital Signs: BMI result Body Mass Index 7.0 General: Well-appearing well-nourished in no signs of distress HEENT: Normocephalic atraumatic Neck: No signs of JVD, no masses no tenderness or lymphadenopathy Cardiovascular: Regular rate and rhythm Respiratory: Clear to auscultation bilaterally Abdomen: Soft nontender no masses Extremities: Left arm red warm indurated enlarged around and just above the left wrist Normal pedal pulses no signs of edema Skin: Dry warm no rashes Back: No tenderness full ROM Course Course Course Narrative: Patient never filled up his scripts asking for medications for pain of the patient's some Tylenol and start the patient on doxycycline Patient continues to deny SI I will have the patient evaluated by detox and crisis. Medical Decision Making Medical Decision Making [facility] Narrative: Patient is already antibiotics I think the patient benefit from being seen by recovery coordinator Differential Diagnosis Differential Diagnoses: The differential diagnosis associated with the presentation includes Cellulitis depression anxiety and substance abuse Consult Healthcare Provider Management of the patient was discussed with: In Processing Instructor and Behavioral Health Provider Lab Data [facility] Lab Attestation statement: I reviewed the patient's lab results. 09/13/23 11:18 09/13/23 11:18 Labs: Lab Results 09/13/23 Range/Units 11:18 WBC 12.2 H (4.8-10.8) X10*3/uL RBC 4.24 L (4.60-5.80) X10*6/uL Hgb 13.0 L (14.0-18.0) g/dl Hct 35.5 L (42.0-52.0) % MCV 83.7 (80.0-98.0) fL MCH 30.7 (27.0-33.0) pg MCHC 36.6 H (31.0-36.0) g/dl RDW 12.8 (11.0-16.0) % Plt Count 152 L (160-400) X10*3/uL MPV 10.9 (9.4-12.4) fL Immature Gran % (Auto) 0.7 H (0.0-0.4) % Neut % (Auto) 82.1 H (45-73) % Lymph % (Auto) 6.0 L (20-40) % [place] % (Auto) 10.5 (2-11) % Eos % (Auto) 0.4 (0-4) % Baso % (Auto) 0.3 (0-2) % Lymph # (Auto) 0.7 L (1.2-4.9) X10*3/uL [place] # (Auto) 1.3 H (0.1-1.2) X10*3/uL Eos # (Auto) 0.1 (0.0-0.4) X10*3/uL Baso # (Auto) 0.0 (0.0-0.2) X10*3/uL Abs Immat Gran (auto) 0.09 H (0.00-0.03) X10*3/uL Absolute Neuts (auto) 10.0 H (2.0-8.3) x10*3/uL Absolute Nucleated RBC 0.000 (0.0-0.012) X10*3/uL Nucleated RBC % (auto) 0.0 (0.0-0.2) /100WBC Smear Tech's Comments VERIFIED Sodium 138 (135-145) mmol/L Potassium 3.8 (3.3-5.1) mmol/L Chloride 104 (96-108) mmol/L Carbon Dioxide 26 (22-29) mmol/L Anion Gap 12 (12-20) BUN 10 (9-16) mg/dL Creatinine 0.82 (0.5-1.4) mg/dL Estim Creat Clear Calc 34.2 Estimated GFR > 60 Random Glucose 95 (60-115) mg/dL Calcium 9.2 (8.4-10.2) mg/dL Total Bilirubin 0.7 (0.0-1.0) mg/dL Direct Bilirubin 0.2 (0.0-0.5) mg/dL AST 24 (5-37) U/L ALT 21 (0-40) U/L Alkaline Phosphatase 54 (39-117) U/L Total Protein 6.5 (6.5-8.0) g/dL Albumin 3.5 (3.5-5.0) g/dL Lipase 10 (8-78) U/L Ethyl Alcohol < 10 mg/dL Discharge Plan Discharge Clinical Impression: Cellulitis, Active substance abuse Patient Disposition: Still a Patient Prescriptions: No Action methadone 65 mg PO DAILY Rx Instructions: BHN confirmed patient received 6 take home bottles- 65mg each on 12/27/2022 to use for dosing through 01/02/2023. amoxicillin-pot clavulanate 875-125 mg tablet 1 tab PO BID Qty: 20 0RF doxycycline hyclate 100 mg capsule 100 mg PO BID Qty: 20 0RF Print Language: Hungarian
--- NOTE | 2023-09-13 11:34 | MHC.RECOVRN ---
Met with pt in [id number] after pt expressed interest in [facility]. Pt laying in bed, awake, alert, engages in conversation, appears comfortable. Pt reports heroin/fentanyl use, $100 daily, IV, as well as cocaine, $100 daily, IV, since Thursday 09/07. Pt reports prior to that he had been at [facility]. Pt is interested in [facility] with plans to return to [facility] after completion. Pt also reports he is currently on methadone, 62 mg daily through [facility]. Pt denies questions or concerns for t/w. Is agreeable to any ATS facility.
[2023-09-13 11:37] LABS: Alanine Aminotransferase 21 U/L (0-40); Albumin Level 3.5 g/dL (3.5-5.0); Alkaline Phosphatase 54 U/L (39-117); Anion Gap 12 (12-20); Aspartate Amino Transferase 24 U/L (5-37); Basophils Percent Auto 0.3 % (0-2); Bilirubin Direct 0.2 mg/dL (0.0-0.5); Bilirubin Total 0.7 mg/dL (0.0-1.0); Blood Urea Nitrogen 10 mg/dL (9-16); Calcium 9.2 mg/dL (8.4-10.2); Carbon Dioxide 26 mmol/L (22-29); Chloride 104 mmol/L (96-108); Creatinine Clr Calc Pharmacy 34.2; Eosinophils Absolute Auto 0.1 X10*3/uL (0.0-0.4); Eosinophils Percent Auto 0.4 % (0-4); Estimated Glomerular Filt Rate > 60; Ethanol < 10 mg/dL; Glucose Random 95 mg/dL (60-115); Hematocrit 35.5 % (42.0-52.0); Imm Gran Abs Auto 0.09 X10*3/uL (0.00-0.03); Imm Gran Pct Auto 0.7 % (0.0-0.4); Lipase 10 U/L (8-78); Lymphocytes Absolute Auto 0.7 X10*3/uL (1.2-4.9); MANUAL DIFF FLAG SCAN; Mean Corpuscular HGB Conc 36.6 g/dl (31.0-36.0); Mean Corpuscular Hemoglobin 30.7 pg (27.0-33.0); Mean Corpuscular Volume 83.7 fL (80.0-98.0); Monocytes Absolute Auto 1.3 X10*3/uL (0.1-1.2); Monocytes Percent Auto 10.5 % (2-11); Neutrophils Percent Auto 82.1 % (45-73); PLT CLUMP 1; Potassium 3.8 mmol/L (3.3-5.1); Red Blood Count 4.24 X10*6/uL (4.60-5.80); Red Cell Distribution Width 12.8 % (11.0-16.0); SCAN SMEAR FLAG 1; Sodium 138 mmol/L (135-145); Total Protein 6.5 g/dL (6.5-8.0)
[2023-09-13 11:38] LABS: White Blood Count 12.2 X10*3/uL (4.8-10.8)
[2023-09-13 11:53] LABS: Platelet Count 152 X10*3/uL (160-400)
[2023-09-13 11:54] LABS: Mean Platelet Volume 10.9 fL (9.4-12.4); SLIDE REVIEW VERIFIED
--- NOTE | 2023-09-13 12:59 | MHC.RECOVRN ---
[facility] in [place] reports bed availability. Referral has been sent.
[2023-09-13] MEDS: Acetaminophen 325 MG TABLET 650 MG PO (13:08)
[2023-09-13] MEDS: Doxycycline Monohydrate 100 MG CAPSULE PO (13:08)
--- NOTE | 2023-09-13 14:11 | HE.PHANOTE ---
RE: methadone Received verification form, last dose 62mg 09/10/23 @0812 at [facility]
[2023-09-13 14:40] VITALS: BP 118/59; PULSE 69; RESP 14; O2SAT 99
--- NOTE | 2023-09-13 14:42 | MHC.RECOVRN ---
Pt accepted to [facility]. Will be transported via [employer].
[2023-09-13] MEDS: methADONE HCl 20 MG/2 ML ORAL.CONC 62 MG PO (16:13)
[2023-09-13 17:12] VITALS: BP 140/85; PULSE 85; RESP 18; TEMP 36.7; O2SAT 98
[2023-09-13 17:15] VITALS: BP 116/68; PULSE 70; RESP 16; TEMP 36.6; O2SAT 98
== END 2023-09-13 17:30 ==
PROVIDERS: Emergency Provider Student in an Organized Health Care Education/Training Program
DX: F19.10 Other psychoactive substance abuse, uncomplicated (principal); F11.20 Opioid dependence, uncomplicated; L03.114 Cellulitis of left upper limb; F41.9 Anxiety disorder, unspecified; F32.A Depression, unspecified; Z79.899 Other long term (current) drug therapy
CPT/HCPCS: 36415; 80048; 80076; 80307; 83690; 85025; 99284